=== PATIENT | female | born 1975 | race Caucasian/White ===

== ENCOUNTER → 2020-07-11 | Outpatient (CLI) | payer MEDICAID ==
[~2020-07-11] MED LIST: DULO30CA2 PO; GABA300S PO; PROT20 PO
== END | disposition home or self-care (01) ==
LOC: LAB 12:31
PROVIDERS: ATTEND Neurological Surgery
DX: Z01.812 Encounter for preprocedural laboratory examination (principal); Z20.828 Contact with and (suspected) exposure to other viral communicable diseases
CPT/HCPCS: C9803; U0003

== ENCOUNTER 2020-07-14 05:29 | Inpatient (IN) | payer MEDICAID ==
[2020-07-14] VITALS (48 sets, daily range): BP systolic 90–141; BP diastolic 53–102
[~2020-07-14] VITALS: Ht 157.5 cm; Wt 54.4 kg
[2020-07-14] MEDS ORDERED: LACTATED RINGERS 1,000 ML IV SCH (05:30)
[2020-07-14 06:18] LABS: CLARITY URINE CLEAR (CLEAR); COLOR URINE YELLOW (YELLOW); KETONES URINE NEGATIVE (NEGATIVE); LEUKOCYTE ESTERASE URINE NEGATIVE (NEGATIVE); NITRITE URINE NEGATIVE (NEGATIVE); OCCULT BLOOD URINE NEGATIVE (NEGATIVE); PH URINE 6.5 (4.5-8.0); PROTEIN URINE NEGATIVE (NEGATIVE); SPECIFIC GRAVITY URINE 1.015 (1.005-1.030); UROBILINOGEN URINE 0.2 E.U./dL (0.2-1.0)
[2020-07-14 06:20] LABS: BASOPHILS % 1.6 % (0.0-2.0); EOSINOPHILS % 1.1 % (0.0-5.0); HEMATOCRIT. 37.9 % (36.0-48.0); HEMOGLOBIN. 12.8 g/dL (12.0-16.0); LYMPHOCYTES % 35.2 % (20.0-50.0); MEAN CORPUSCULAR HEMOGLOBIN 30.3 pg (28.0-32.0); MEAN CORPUSCULAR VOLUME 89.7 fL (81.0-99.0); MEAN PLATELET VOLUME 9.1 fl (7.4-10.4); NEUTROPHILS % 50.1 % (40.0-76.0); PLATELET 247 x1000/uL (130-400); RED BLOOD CELL COUNT 4.23 mill/uL (4.2-5.4); RED CELL DISTRIBUTION WIDTH 13.5 % (11.6-14.6)
[2020-07-14 06:28] LABS: PARTIAL THROMBOPLASTIN TIME 27.3 sec (23.4-31.0); PROTHROMBIN TIME 10.9 sec (9.6-11.0)
[2020-07-14 06:33] LABS: UCG SCREEN NEGATIVE
[2020-07-14] MEDS ORDERED: BACITRACIN 50,000 UNITS/VIAL ONE (06:40)
[2020-07-14] MEDS ORDERED: LIDOCAINE HCL/EPINEPHRINE 1%-EPI 1:100,000 20 ML VIAL ONE (06:40)
[2020-07-14] MEDS ORDERED: THROMBIN (BOVINE) 5000 UNITS/VIAL TOP ONE (06:40)
[2020-07-14 06:52] LABS: CHLORIDE 106 mEq/L (98-107)
[2020-07-14] MEDS ORDERED: EPHEDRINE SULFATE 50MG/ML VIAL ONE (07:03)
[2020-07-14] MEDS ORDERED: SODIUM CHLORIDE 0.9% 10ML VIAL ONE ×2 (07:04→07:07)
[2020-07-14] MEDS ORDERED: CEFAZOLIN SODIUM 1000MG/VIAL ONE (07:04)
[2020-07-14] MEDS ORDERED: LIDOCAINE HCL 1% 20ML VIAL (Pyxis) INJ ONE (07:04)
[2020-07-14] MEDS ORDERED: NEOSTIGMINE METHYLSULFATE 1MG/ML 10 ML VIAL ONE (07:05)
[2020-07-14] MEDS ORDERED: PROPOFOL 200MG/20ML VIAL IV ONE (07:05)
[2020-07-14] MEDS ORDERED: ROCURONIUM BROMIDE 10MG/ML VIAL 5ML IV ONE (07:05)
[2020-07-14] MEDS ORDERED: GLYCOPYRROLATE 0.2 MG/ML 2ML VIAL ONE (07:05)
[2020-07-14] MEDS ORDERED: FENTANYL CITRATE/PF 50MCG/ML 2ML VIAL ONE (07:09)
[2020-07-14] MEDS ORDERED: MIDAZOLAM HCL 2 MG/2 ML VIAL ONE (07:09)
[2020-07-14] MEDS ORDERED: DULO30CA2 PO (07:25)
[2020-07-14] MEDS ORDERED: GABA300S PO (07:25)
[2020-07-14] MEDS ORDERED: PROT20 PO (07:25)
[2020-07-14] MEDS ORDERED: ONDANSETRON HCL 4MG/2ML INJ ONE (07:40)
[2020-07-14] MEDS: DEXT 5%/LACTATED RINGERS 1,000 ML IV SCH ×2 (09:47→21:31)
[2020-07-14] MEDS: MORPHINE SULFATE 4 MG/ML CPJ (NOT FOR IM USE) IV PRN ×3 (09:48→18:08)
[2020-07-14] MEDS ORDERED: NICARDIPINE 100 MG in SODIUM CHLORIDE 0.9% 60 ML IV PRN (10:30)
[2020-07-14] MEDS: DEXAMETHASONE 4MG/ML 1ML VIAL IV SCH ×3 (11:17→23:56)
[2020-07-14] MEDS: CEFAZOLIN 1000MG PREMIX 50 ML IV SCH ×2 (13:09→21:31)
[2020-07-14] MEDS ORDERED: CEFAZOLIN SODIUM 1000MG/VIAL IV SCH (14:00)
[2020-07-14] MEDS: PANTOPRAZOLE SODIUM 40 MG/VIAL IV SCH (14:50)
[2020-07-15] VITALS (38 sets, daily range): BP systolic 88–128; BP diastolic 46–89
[2020-07-15] MEDS: MORPHINE SULFATE 4 MG/ML CPJ (NOT FOR IM USE) IV PRN (00:51)
[2020-07-15] MEDS: CEFAZOLIN 1000MG PREMIX 50 ML IV SCH ×2 (05:19→13:29)
[2020-07-15] MEDS: DEXAMETHASONE 4MG/ML 1ML VIAL IV SCH ×2 (05:19→11:46)
[2020-07-15] MEDS: PANTOPRAZOLE SODIUM 40 MG/VIAL IV SCH (07:58)
[2020-07-15] MEDS: DEXT 5%/LACTATED RINGERS 1,000 ML IV SCH (09:35)
[2020-07-15] MEDS: HYDROCODONE/ACETAMINOPHEN 5/325MG TABLET PO PRN ×2 (14:21→21:00)
[2020-07-16] VITALS: BP 106/59
[2020-07-16 04:00] VITALS: BP 116/68
[2020-07-16 08:00] VITALS: BP 113/71
[2020-07-16] MEDS: PANTOPRAZOLE SODIUM 40 MG/VIAL IV SCH (08:42)
[2020-07-16 11:21] VITALS: BP 113/17
[2020-07-16] MEDS: DEXT 5%/LACTATED RINGERS 1,000 ML IV SCH (11:27)
== END 2020-07-16 12:44 | disposition home or self-care (01) | DRG 321 ==
LOC: OR 05:29 → MICUNO 05:30 → 6EST 07-15 13:42
PROVIDERS: ADMIT Neurological Surgery; ATTEND Neurological Surgery
PROC: 0RG10K0 Fusion of Cervical Vertebral Joint with Nonautologous Tissue Substitute, Anterior Approach, Anterior Column, Open Approach (ICD-10-PCS; principal; 2020-07-14)
DX: M48.02 Spinal stenosis, cervical region (principal); M47.12 Other spondylosis with myelopathy, cervical region; G82.50 Quadriplegia, unspecified; M47.22 Other spondylosis with radiculopathy, cervical region; K29.70 Gastritis, unspecified, without bleeding; S14.129A Central cord syndrome at unspecified level of cervical spinal cord, initial encounter; M50.022 Cervical disc disorder at C5-C6 level with myelopathy; V89.2XXA Person injured in unspecified motor-vehicle accident, traffic, initial encounter; Y92.410 Unspecified street and highway as the place of occurrence of the external cause; Z98.1 Arthrodesis status; Y93.89 Activity, other specified; Y99.8 Other external cause status; Z79.899 Other long term (current) drug therapy
CPT/HCPCS: 36415; 71045; 72040; 72141; 76000; 80048; 81003; 81025; 85025; 86850; 86900; 88304; 88311; 93005; 95925; 95926; 95928; 95929; 97116; 97162; 97166; 97530; 97535; C1713; C9113; J0690; J1100; J2250; J2270; J2405; J2704; J2710; J3010; J3490; J7121; L0172

== ENCOUNTER 2022-05-25 16:44 | Emergency (ER) | payer MEDICAID ==
[~2022-05-25] VITALS: Ht 165.1 cm; Wt 70.0 kg
[2022-05-25 16:49] VITALS: BP 127/75
[2022-05-25] MEDS ORDERED: ACETAMINOPHEN 325MG TABLET PO ONE (17:15)
[2022-05-25] MEDS ORDERED: METHOCARBAMOL 750MG TABLET PO SCH (17:15)
[2022-05-25] MEDS ORDERED: KETOROLAC 60MG/2ML VIAL IM ONE (18:30)
[2022-05-25] MEDS ORDERED: LIDO1ADH23 TP (18:42)
[2022-05-25] MEDS ORDERED: IBUP-2028 MT (18:42)
[2022-05-25] MEDS ORDERED: METH-653 MT (18:42)
[2022-05-25] MEDS ORDERED: TOPUD PO (18:42)
== END 2022-05-25 19:13 | disposition home or self-care (01) ==
LOC: ER 16:44
DX: S13.4XXA Sprain of ligaments of cervical spine, initial encounter (principal); I49.9 Cardiac arrhythmia, unspecified; V89.2XXA Person injured in unspecified motor-vehicle accident, traffic, initial encounter; Y93.89 Activity, other specified; Y92.89 Other specified places as the place of occurrence of the external cause; Y99.8 Other external cause status
CPT/HCPCS: 70450; 71046; 72125; 93005; 96372; 99285; J1885